=== PATIENT | female | born 1995 | race Caucasian/White ===

== ENCOUNTER 2024-05-08 08:12 | Inpatient (IN) ==
[2024-05-08] MEDS ORDERED: Prochlorperazine 5 mg/ml 2 ml VIAL (10 mg) IV PRN (09:59)
[2024-05-08] MEDS ORDERED: Lidocaine 1% VIAL 10 MG/ML 30 ML VIAL INJ PRN (09:59)
[2024-05-08] MEDS ORDERED: Nalbuphine 10 MG/ML 1 ML VIAL IV PRN (09:59)
[2024-05-08] MEDS: Dinoprostone 10 MG VAG.SUPP VAGINAL ONE (11:04)
[2024-05-08 12:15] LABS: Urine Benzodiazepine Screen None Detected (None Detect); Urine Cannabinoids Screen None Detected (None Detect); Urine Opiates Screen None Detected (None Detect)
[2024-05-08 13:10] LABS: ABS Eosinophils 0.1 10^3/uL (0.0-0.5); ABS Lymphocytes 2.1 10^3/uL (1.0-4.8); ABS Monocytes 0.8 10^3/uL (0.0-0.9); ABS Neutrophils 8.6 10^3/uL (1.5-7.6); ABS Nucleated RBC 0.01 10^3/ul; Eosinophil % 0.6 %; Hematocrit 31.6 % (35-45); Hemoglobin 10.6 g/dL (11.5-14.3); Mean Corpuscular Hemoglobin 27.3 pg (27-33); Mean Corpuscular Hgb Conc 33.6 g/dL (31-36); Mean Corpuscular Volume 81.2 fL (80-97); Mean Platelet Volume 9.1 fL (7.5-11.2); Nucleated Red Blood Cells % 0.1 %/100WBC (0.0-0.8); Platelet Count 303 10^3/uL (150-450); Red Blood Count 3.89 10^6/uL (3.63-4.92); Red Cell Distribution Width 17.5 % (12-17); White Blood Count 11.6 10^3/uL (3.8-11.8)
[2024-05-08 13:18] LABS: Albumin 3.6 g/dL (3.5-5.7); Albumin/Globulin Ratio 1.1 (1-3); Calcium 9.5 mg/dL (8.6-10.3); Creatinine, Serum 0.45 mg/dL (0.51-0.95); Globulin 3.3 g/dL (2-4); Total Bilirubin 0.2 mg/dL (0.2-1.0); Total Protein 6.9 g/dL (6.4-8.9); eGFR CKD-EPI 133.5 (>60)
[2024-05-08 13:35] LABS: Urine Creatinine Concentration 70.85 mg/dL (20.00-320.00); Urine TP Creat Ratio 0.38 mg/mg
[2024-05-09] MEDS: Buffered Lidocaine 1% SYRIN 1 ml INTRADERM ONE (02:12)
[2024-05-09] MEDS: Lactated Ringers 1000 ml BAG 1,000 ML IV ONE ×2 (02:12→20:19)
[2024-05-09] MEDS: Penicillin G Potassium IV 3,000,000 UNITS in NS 0.9% 100 ml BAG 100 ML IVPB SCH ×2 (02:15→12:45)
[2024-05-09] MEDS: Penicillin G Potassium IV 5,000,000 UNITS in NS 0.9% 100 ml BAG 100 ML IVPB ONE (08:41)
[2024-05-09] MEDS: Lactated Ringers 1000 ml BAG 1,000 ML IV SCH ×2 (08:41→20:19)
[2024-05-09] MEDS: Calcium Carb (TUMS) 500 mg CHEW TAB PO SCH (09:44)
[2024-05-09] MEDS: OBEPIDURAL (200 ML) 200 ML EPIDURAL ONE (09:58)
[2024-05-09 11:19] LABS: Urine Appearance Clear; Urine Bilirubin Negative (Negative); Urine Blood Negative (Negative); Urine Color Light-Yellow; Urine Glucose Negative (Negative); Urine Ketones Negative (Negative); Urine Nitrite Negative (Negative); Urine Protein Negative (Negative); Urine Specific Gravity 1.026 (1.002-1.030); Urine Urobilinogen Negative (Negative)
[2024-05-09] MEDS: Famotidine IV 10 MG/ML 2 ml VIAL (20 mg) IV SLOW PU SCH (11:20)
[2024-05-09] MEDS ORDERED: Sodium Citrate/Citric Acid LIQ 15 ML UDC PO PRN (11:56)
[2024-05-09] MEDS ORDERED: Phenylephrine 40 mcg/mL 10mL (400mcg) SYRINGE IV PUSH PRN (11:56)
[2024-05-09] MEDS: Oxytocin in NS 30,000 MILLI.UNIT/500 ML BAG IV SCH ×2 (13:22→20:16)
[2024-05-09] MEDS: Phenylephrine 40 mcg/mL 10mL (400mcg) SYRINGE IV PUSH PRN (13:54)
[2024-05-09] MEDS ORDERED: Glycerin ADULT 2.4 gm SUPP PR PRN (17:26)
[2024-05-09] MEDS ORDERED: Lactated Ringers 1000 ml BAG 1,000 ML IV SCH (18:00)
[2024-05-09] MEDS: Witch Hazel PAD JAR TOPICAL PRN (18:03)
[2024-05-09] MEDS: Dibucaine 1% OINT 28.35 GM TUBE PR PRN (18:03)
[2024-05-09] MEDS: Ropivacaine (OR use only) 2 MG/ML 10 ML ONE ×2 (20:16)
[2024-05-09] MEDS: fentaNYL 100 mcg/2 ml 50 MCG/ML VIAL ONE (20:16)
[2024-05-09] MEDS: OBEPIDURAL (200 ML) 200 ML EPIDURAL SCH (20:17)
[2024-05-09] MEDS: Phenylephrine 40 mcg/mL 10mL (400mcg) SYRINGE ONE (20:17)
[2024-05-09] MEDS: Lidocaine 1.5% EPI 1:200,000 30 ML SDV ONE (20:18)
[2024-05-10 06:37] LABS: ABS Eosinophils 0.1 10^3/uL (0.0-0.5); ABS Lymphocytes 2.6 10^3/uL (1.0-4.8); ABS Monocytes 1.1 10^3/uL (0.0-0.9); ABS Neutrophils 12.4 10^3/uL (1.5-7.6); ABS Nucleated RBC 0.01 10^3/ul; Eosinophil % 0.8 %; Hematocrit 31.9 % (35-45); Hemoglobin 10.5 g/dL (11.5-14.3); Mean Corpuscular Hemoglobin 26.9 pg (27-33); Mean Corpuscular Hgb Conc 32.9 g/dL (31-36); Mean Corpuscular Volume 81.8 fL (80-97); Mean Platelet Volume 8.3 fL (7.5-11.2); Platelet Count 274 10^3/uL (150-450); Red Cell Distribution Width 17.6 % (12-17); White Blood Count 16.2 10^3/uL (3.8-11.8)
[2024-05-10] MEDS: RHO D Immune Globulin (HUMAN) 300 MCG = 1,500 I.U. INJ IM PRN (19:52)
[2024-05-11 09:29] VITALS: BP 133/84
== END 2024-05-11 14:36 | disposition home or self-care (01) | DRG 560 ==
LOC: MCHOBOUT 08:12 → MCHOB 10:28
PROVIDERS: ADMIT Obstetrics & Gynecology; ATTEND Obstetrics & Gynecology